=== PATIENT | male | born 1985 | race African-American/Black ===

== ENCOUNTER 2018-11-10 06:27 | Emergency (ER) | payer MEDICAID ==
[~2018-11-10] VITALS: Ht 185.4 cm; Wt 74.9 kg
[~2018-11-10 06:27] MED LIST: CHLO100T6 PO; CHLO200T2 PO; QUET100T4 PO; QUET400T4 PO; THORAZINE IM
[2018-11-10 06:29] VITALS: BP 139/91
--- NOTE | 2018-11-10 06:40 | NUR ---
PT ARRIVES TO [facility] STATING HE WANTS TO HARM OTHERS WITH NO PLAN. PT AMBULATES FROM TRIAGE TO ROOM WITH STEADY GAIT. PT CHANGED INTO GOWN AND IS IN GURNEY AT THIS TIME WITH DR. CEJA AT BEDSIDE FOR HISTORY AND ASSESSMENT. PT EDUCATED ON ER PROCESS AND POC AND VERBALIZES UNDERSTANDING. PT BELONGINGS CONFISCATED AND LOCKED IN STORAGE (2 OF 2 BAGS). PT GIVEN UA CUP AND INSTRUCTED TO VOID WHEN POSSIBLE. ROOM SECURED FOR PT AND STAFF SAFETY. SITTER REQUESTED TO HOTBED LEVER OPERATOR. AWAITING NEW ORDERS AT THIS TIME.
--- NOTE | 2018-11-10 06:56 | NUR ---
REPORT OF PT TO SERENA BERGERON. ALL QUESTIONS ANSWERED.
--- NOTE | 2018-11-10 07:00 | NUR ---
PT RESTING ON GURCONNOR. COSMEN. SITTER AT BEDSIDE. ROOM REMAINS SECURE. WARM BLANKET PROVIDED.
[2018-11-10 07:24] LABS: BASOPHILS # (AUTO) 0.05 x10^3/uL (0-0.1); BASOPHILS % (AUTO) 1 % (0-1); EOSINOPHILS # (AUTO) 0.06 x10^3/uL (0-0.4); EOSINOPHILS % (AUTO) 1 % (1-7); LYMPHOCYTES # (AUTO) 1.21 x10^3/uL (1-3.4); LYMPHOCYTES % (AUTO) 16 % (22-44); MD NO; MEAN CORPUSCULAR HEMOGLOBIN 29.3 pg (27.5-34.5); MEAN CORPUSCULAR HGB CONC 33.9 g/dL (33.2-36.2); MEAN CORPUSCULAR VOLUME 86.4 fL (81-97); MEAN PLATELET VOLUME 9.8 fL (7.4-10.4); MONOCYTES # (AUTO) 0.68 x10^3/uL (0.2-0.8); MONOCYTES % (AUTO) 9 % (2-9); NEUTROPHILS # (AUTO) 5.46 x10^3/uL (1.8-6.8); NEUTROPHILS % (AUTO) 73 % (42-75); PLATELET COUNT 192 x10^3/uL (130-400); RED CELL DISTRIBUTION WIDTH 14.6 % (9.4-14.8)
[2018-11-10 07:40] LABS: ALANINE AMINOTRANSFERASE 19 U/L (12-78); ANION GAP 5 mmol/L (5-15); CALCIUM 8.6 mg/dL (8.5-10.1); CHLORIDE 108 mmol/L (98-107); CREATININE 0.86 mg/dL (0.7-1.3)
[2018-11-10 07:42] LABS: ALKALINE PHOSPHATASE 82 U/L (45-117); TOTAL PROTEIN 7.2 g/dL (6.4-8.2)
[2018-11-10 07:42] LABS: AMPHETAMINE SCREEN, URINE Negative (Negative); BARBITURATE SCREEN, URINE Negative (Negative); BENZODIAZEPINE SCREEN, URINE Negative (Negative); CANNABINOID SCREEN, URINE Positive (Negative); COCAINE SCREEN, URINE Negative (Negative); METHADONE SCREEN, URINE Negative (Negative); OPIATE SCREEN, URINE Negative (Negative)
[2018-11-10 07:47] LABS: ACETAMINOPHEN < 2 mcg/mL (10-30); SALICYLATE LEVEL < 1.7 mg/dL (2.8-20.0)
--- NOTE | 2018-11-10 08:12 | NUR ---
PT RESTING ON NAYELI. ALTHEA. SITTER REMAINS AT BEDSIDE. ROOM REMAINS SECURE. PT PROVIDED W/ SI BREAKFAST TRAY.
--- NOTE | 2018-11-10 09:23 | NUR ---
PT RESTING ON NAYELI. ALTHEA. SITTER REMAINS AT BEDSIDE. ROOM REMAINS SECURE. TELEPSYCH MONITOR AT BEDSIDE.
== END 2018-11-10 11:56 | disposition home or self-care (01) ==
LOC: ED 07:26
DX: F29 Unspecified psychosis not due to a substance or known physiological condition (principal); F14.10 Cocaine abuse, uncomplicated; Z72.9 Problem related to lifestyle, unspecified; F17.200 Nicotine dependence, unspecified, uncomplicated; F20.9 Schizophrenia, unspecified; F32.9 Major depressive disorder, single episode, unspecified
CPT/HCPCS: 36415; 80053; 80307; 80329; 85025; 99284; G0480

== ENCOUNTER 2018-11-25 16:21 | Emergency (ER) | payer MEDICAID ==
[~2018-11-25] VITALS: Ht 185.4 cm; Wt 68.0 kg
--- NOTE | 2018-11-25 17:05 | NUR ---
Pt moved to room 38, care assumed by this RN. Pt in secured room, with garage doors down and sitter outside of room for pt safety. Pt is changing into gown and has [address] his clothing and other items in.
--- NOTE | 2018-11-25 17:15 | NUR ---
Urine sample collected and sent to lab.
[2018-11-25 17:40] LABS: ALANINE AMINOTRANSFERASE 18 U/L (12-78); ALBUMIN 4.2 g/dL (3.4-5.0); ANION GAP 6 mmol/L (5-15); CALCIUM 9.2 mg/dL (8.5-10.1); CHLORIDE 105 mmol/L (98-107)
[2018-11-25 17:41] LABS: BASOPHILS # (AUTO) 0.06 x10^3/uL (0-0.1); BASOPHILS % (AUTO) 1 % (0-1); EOSINOPHILS % (AUTO) 2 % (1-7); LYMPHOCYTES # (AUTO) 1.86 x10^3/uL (1-3.4); LYMPHOCYTES % (AUTO) 17 % (22-44); MD NO; MEAN CORPUSCULAR HEMOGLOBIN 29.5 pg (27.5-34.5); MEAN CORPUSCULAR HGB CONC 33.1 g/dL (33.2-36.2); MEAN CORPUSCULAR VOLUME 89.2 fL (81-97); MEAN PLATELET VOLUME 10.9 fL (7.4-10.4); MONOCYTES # (AUTO) 0.92 x10^3/uL (0.2-0.8); MONOCYTES % (AUTO) 8 % (2-9); NEUTROPHILS # (AUTO) 7.91 x10^3/uL (1.8-6.8); NEUTROPHILS % (AUTO) 72 % (42-75); PLATELET COUNT 194 x10^3/uL (130-400); RED CELL DISTRIBUTION WIDTH 14.1 % (9.4-14.8)
[2018-11-25 17:42] LABS: ACETAMINOPHEN < 2 mcg/mL (10-30); ALKALINE PHOSPHATASE 95 U/L (45-117); BILIRUBIN,TOTAL 0.9 mg/dL (0.2-1.0); SALICYLATE LEVEL < 1.7 mg/dL (2.8-20.0)
--- NOTE | 2018-11-25 17:50 | NUR ---
Pt resting on gurney, 2 belonging bags labeled and placed in locker. Garage doors down and sitter outside of room for pt safety. Pt aware of plan while in ED.
[2018-11-25 17:53] LABS: AMPHETAMINE SCREEN, URINE Negative (Negative); BARBITURATE SCREEN, URINE Negative (Negative); BENZODIAZEPINE SCREEN, URINE Negative (Negative); CANNABINOID SCREEN, URINE Positive (Negative); COCAINE SCREEN, URINE Negative (Negative); METHADONE SCREEN, URINE Negative (Negative); OPIATE SCREEN, URINE Negative (Negative)
--- NOTE | 2018-11-25 18:10 | NUR ---
Pt provided with juices and water, per request.
[2018-11-25 18:17] LABS: CULTURE INDICATED? YES; MICROSCOPIC INDICATED
--- NOTE | 2018-11-25 18:50 | NUR ---
Pt resting on gurney, in no apparent distress. Sitter remains outside of room for pt safety.
[2018-11-25] MEDS ORDERED: FOSFOMYCIN 3 GM PACKET PO ONE (19:00)
[2018-11-25] MEDS ORDERED: FOSFOMYCIN 3 GM PACKET ONE (19:19)
--- NOTE | 2018-11-25 19:28 | NUR ---
Pt medicated per MAR.
--- NOTE | 2018-11-25 19:30 | NUR ---
Report given to HARRY CLINE. Camera in room and pt aware of plan to talk to HARRY CLINE.
--- NOTE | 2018-11-25 20:25 | NUR ---
BREAK RN NOTE: TELEPSYC CONSULT COMPLETED, RECOMMENDATIONS RECEIVED BY FELICIA HOWARD. MD RECEIVED MEDICATION RECOMMENDATIONS AND RECOMMENDATION TO DISCHARGE PT. MD DISCUSSED PLAN OF CARE WITH PT, PT AGREEABLE TO DISCHARGE PLAN TO FOLLOW UP WITH OUTPATIENT MENTAL [facility]ALTH FACILITY. PT TO BE SEEN BY PACKAGE DELIVERY DRIVER TO BE SET UP WITH OUTPATIENT RESOURCES. PACKAGE DELIVERY DRIVER PAGED.
[2018-11-25] MEDS ORDERED: OLANZAPINE 5 MG TABLET PO SCH (20:30)
[2018-11-25] MEDS ORDERED: OLANZAPINE 5 MG TABLET ONE (20:51)
[2018-11-25 21:16] VITALS: BP 114/67
--- NOTE | 2018-11-25 21:17 | NUR ---
Pt medicated per MAR. Patient/Caregiver given discharge instructions and they have confirmed that they understand the instructions. Patient ambulatory with steady gait.
== END 2018-11-25 21:18 | disposition home or self-care (01) ==
LOC: ED 19:46
DX: F20.89 Other schizophrenia (principal); F17.200 Nicotine dependence, unspecified, uncomplicated; F32.9 Major depressive disorder, single episode, unspecified
CPT/HCPCS: 36415; 80053; 80307; 81001; 85025; 87086; 99284